=== PATIENT | female | born 1945 | race Caucasian/White ===

== ENCOUNTER → 2017-12-18 09:24 | Outpatient (CLI) | payer MEDICARE, OTHER, SELFPAY ==
[2017-12-18 11:32] LABS: Cholesterol 223 mg/dL (200); High Density Lipoprotein 58 mg/dL; Triglycerides 184 mg/dL; Very Low Density Lipoprotein 37 mg/dL (5-40)
== END ==
PROVIDERS: Family Provider Family Medicine; PCP Family Medicine; Referring Provider Family Medicine; Visit Provider Family Medicine
DX: I63.81 Other cerebral infarction due to occlusion or stenosis of small artery (principal); G45.4 Transient global amnesia; Z51.81 Encounter for therapeutic drug level monitoring
CPT/HCPCS: 36415; 80061

== ENCOUNTER → 2019-02-07 13:27 | Outpatient (CLI) | payer MEDICARE, OTHER, SELFPAY ==
[2019-02-07 16:12] LABS: Absolute Lymphocyte Count 1.36 X10^3/uL (0.83-4.51); Absolute Neutrophil Count 4.6 X10^3/uL (2.0-7.7); Basophil# 0.02 X10^3/uL; Basophil% 0.3 % (0-1); Eosinophil# 0.05 X10^3/uL; Eosinophils% 0.8 % (0-5); Hematocrit 41.5 % (37-47); Hemoglobin 13.6 g/dL (12.0-15.0); Lymphocyte # 1.36 X10^3/ul (4.0); Lymphocyte % 21.1 % (19-41); Mean Corp Hgb Conc 32.8 g/dL (32-36); Mean Corpuscular Hgb 30.2 pg (27.0-32.0); Mean Platelet Vol. 11.1 fl (6.2-12.0); Monocyte# 0.37 X10^3/uL; Monocyte% 5.7 % (0-10); NRBC Flagged by Analyzer 0 % (0-5); Neutrophil # 4.63 X10^3/uL (2.7-7.7); Neutrophil % 71.9 % (47-70); Platelet Count 239 K/mm3 (150-450); RBC Distribution Width CV 13.2 % (11.6-14.6); RBC Distribution Width SD 44.7 fl (35.1-43.9); Red Blood Count 4.51 M/mm3 (4.2-5.4); White Blood Count 6.4 K/mm3 (4.4-11.0)
[2019-02-07 16:45] LABS: D-Dimer Quantitative (DVT/PE) 0.44 FEU/ug/m (0.27-0.49)
[2019-02-07 16:58] LABS: BNP,B-Type NATRIURETIC PEPTIDE 29.8 pg/mL (0-100)
[2019-02-07 16:59] LABS: Hemoglobin A1c 5.7 % (4.2-6.3)
[2019-02-07 17:28] LABS: AST(SGOT) 18 U/L (15-37); Alanine Aminotransfer ALT/SGPT 29 U/L (13-56); Albumin, Serum 3.6 g/dL (3.2-5.0); Alkaline Phosphatase 56 U/L (45-117); Anion Gap 4 (5-15); BUN 12 mg/dL (7-18); BUN/Creat Ratio 16.9 RATIO (10-20); Calcium,Total 9.3 mg/dL (8.5-10.1); Chloride 104 mmol/L (98-107); Creatinine, Serum 0.71 mg/dL (0.55-1.02); EST Glomerular Filtration Rate 86 mL/min (>60); Est Glom Filt Rate - Afr Amer 104 mL/min (>60); Globulin 3.6 g/dL (2.2-4.2); Glucose 111 mg/dL (74-106); Potassium 3.4 mmol/L (3.5-5.1); Protein, Total 7.2 g/dL (6.4-8.2); Sodium Level 139 mmol/L (136-145)
== END ==
PROVIDERS: Family Provider Family Medicine; PCP Family Medicine; Referring Provider Family Medicine; Visit Provider Family Medicine
DX: R60.0 Localized edema (principal); R06.00 Dyspnea, unspecified; R73.9 Hyperglycemia, unspecified
CPT/HCPCS: 36415; 80053; 83036; 83880; 84443; 85025; 85379

== ENCOUNTER → 2019-02-21 10:45 | Outpatient (CLI) | payer MEDICARE, OTHER, SELFPAY ==
--- NOTE | 2019-02-21 10:50 | VDLE_ITS ---
Reason For Study: EDEMA RIGHT LEFT CFV is compressible, spontaneous, phasic, CFV is compressible, spontaneous, phasic, competent and demonstrates normal competent, and demonstrates normal augmentation. augmentation. FV is compressible, spontaneous, phasic, FV is compressible, spontaneous, phasic, competent and demonstrates normal competent and demonstrates normal augmentation. augmentation. POP V is compressible, spontaneous, phasic, POP V is compressible, spontaneous, phasic, competent and demonstrates normal competent and demonstrates normal augmentation. augmentation. T/P Trunk is compressible. T/P Trunk is compressible. PTV is compressible. PTV is compressible. RT PerV is compressible. LT PerV is compressible. SFJ is INCOMPETENT and measures .5 x .6 cm. SFJ is competent and measures .4 x .5 cm. GSV at knee measures .2 x .2 cm. GSV at knee measures .2 x .2 cm. GSV above knee is competent. GSV above knee is competent. GSV below knee is INCOMPETENT for greater GSV below knee is INCOMPETENT for greater than 0.5 seconds. than 0.5 seconds. SSV at junction is competent and measures .2 SSV at junction is competent and measures .24 x .254 cm. x .24 cm. Procedure Exam performed in department. Interpretation Summary Deep veins of the lower extremities are bilaterally patent and compressible segmentally. There is no evidence of deep vein thrombosis on either side. Valvular competence appears intact within the proximal deep venous systems bilaterally. The great saphenous veins appear bilaterally patent and compressible segmentally. The right sapheno-femoral junction is incompetent . The left sapheno- femoral junction is competent . The right great saphenous vein appears competent above the knee. The right great saphenous vein appears incompetent below the knee. The left great saphenous vein appears competent above the knee. The left great saphenous vein appears incompetent below the knee. Small saphenous veins are patent and competent bilaterally. Ordering Physician: Ruben Vickers Referring Physician: Ruben Vickers Performed By: Brenda Sutherland, REGAN, RVT
== END ==
PROVIDERS: Family Provider Family Medicine; PCP Family Medicine; Referring Provider Family Medicine; Visit Provider Family Medicine
DX: R60.0 Localized edema (principal); I83.893 Varicose veins of bilateral lower extremities with other complications
CPT/HCPCS: 93970

== ENCOUNTER → 2020-05-16 12:26 | Outpatient (CLI) | payer MEDICARE, OTHER, SELFPAY ==
--- NOTE | 2020-05-16 12:32 | VDLE_ITS ---
Reason For Study: Progressive venous insufficiency RIGHT LEFT CFV is compressible, spontaneous, phasic, CFV is compressible, spontaneous, phasic, competent and demonstrates normal competent, and demonstrates normal augmentation. augmentation. FV is compressible, spontaneous, phasic, FV is compressible, spontaneous, phasic, competent and demonstrates normal competent and demonstrates normal augmentation. augmentation. POP V is compressible, spontaneous, phasic, POP V is compressible, spontaneous, phasic, competent and demonstrates normal competent and demonstrates normal augmentation. augmentation. T/P Trunk is compressible. T/P Trunk is compressible. PTV is compressible. PTV is compressible. RT PerV is compressible. LT PerV is compressible. SFJ is competent and measures 0.49 x 0.51 cm. SFJ is competent and measures 0.57 x 0.59 cm. GSV proximal thigh measures 0.39 x 0.38 cm. GSV proximal thigh measures 0.32 x 0.31 cm. GSV at knee measures 0.16 x 0.16 cm. GSV above knee is competent. GSV INCOMPETENT throughout for greater than GSV at knee measures 0.21 x 0.19 cm. 0.5 seconds. GSV below knee is INCOMPETENT for greater ASV mid thigh is INCOMPETENT for greater than than 0.5 seconds. 0.5 seconds and measures 0.21 x 0.19 cm. ASV mid thigh is INCOMPETENT for greater than SSV proximal calf is competent and measures 0.5 seconds and measures 0.35 x 0.35 cm. 0.16 x 0.18 cm. SSV proximal calf is competent and measures Procedure 0.13 x 0.16 cm. This is a venous duplex using B-mode, color flow and spectral Doppler. Exam performed in department. VL/Venous Duplex US - Juan Extrem Interpretation Summary Deep veins of the lower extremities are bilaterally patent and compressible seg mentally. There is no evidence of deep vein thrombosis on either side. Valvular competence appears in tact within the proximal deep venous systems bilaterally. The great saphenous veins appear bila terally patent and compressible segmentally. Sapheno-femoral junctions are bilaterally competent . The right great saphenous vein appears segmentally incompetent. The left great saphenous vein a ppears competent above the knee. The left great saphenous vein appears incompetent below the kne e. Small saphenous veins are patent and competent bilaterally. The right accessory saphenous vein in the mid-thigh is incompetent. The left accessory saphenous vein in the mid-thigh is incompetent. Ordering Physician: Ruben Vickers Referring Physician: Ruben Vickers Performed By: Shira Irizarry RVT
--- NOTE | 2020-05-16 12:34 | ECHOD_ITS ---
Reason For Study: SOB, Edema Procedure This was a 2D Doppler, Color Flow transthoracic echocardiogram. The exam was of adequate technical quality. Exam performed in department. Left Ventricle Normal LV size. Left ventricular systolic function is normal. The estimated ejection fraction is 60 %. Diastolic function is indeterminate. No regional wall motion abnormalities noted. Right Ventricle Normal RV size. Normal systolic function. Atria The left atrium is mildly enlarged. Normal right atrium. No doppler evidence for ASD. Mitral Valve There is no mitral annular calcification. Normal mitral valve. Mild (1+) mitral valve insufficiency. Tricuspid Valve Normal tricuspid valve. Trivial tricuspid valve insufficiency. Right ventricular systolic pressure estimated to be 23 mmHg. Aortic Valve Trisinus/trileaflet aortic valve. Normal aortic valve. Pulmonic Valve The pulmonic valve is not well visualized. Trivial pulmonic valve insufficiency. Great Vessels Normal sized aortic root. Pericardium/Pleural No pericardial effusion. MMode/2D Measurements & Calculations LVIDd: 4.0 cm IVSd: 1.2 cm Ao root diam: 2.8 cm LVIDs: 2.3 cm LVPWd: 1.2 cm RVDd: 3.3 cm FS: 42.7 % LAV(MOD-bp): 60.5 ml LVAd ap4: 25.2 cm2 SV(MOD-sp4): 43.4 ml LAV(MOD-bp) Indexed: 33.9 ml/m2 EDV(MOD-sp4): 69.3 ml LAV(MOD-sp2): 52.7 ml EDV(sp4-el): 70.8 ml LAV(MOD-sp4): 67.6 ml LVAs ap4: 14.1 cm2 ESV(MOD-sp4): 25.9 ml ESV(sp4-el): 25.8 ml EF(MOD-sp4): 62.7 % EF(sp4-el): 63.6 % SV(sp4-el): 45.0 ml LA A4 area: 21.3 cm2 LA dimension(2D): 4.2 cm RA A4 area: 11.9 cm2 Doppler Measurements & Calculations MV E max rich: 79.3 cm/sec Lat Peak E' Rich: 8.8 cm/sec Med Peak E' Rich: 5.0 cm/sec MV A max rich: 85.8 cm/sec E/E' lat: 9.0 E/E' med: 15.9 MV E/A: 0.93 Ao V2 max: 137.7 cm/sec LV V1 max: 106.9 cm/sec PA V2 max: 109.6 cm/sec Ao max P.6 mmHg LV V1 max P.6 mmHg TR max rich: 225.6 cm/sec TR max P.4 mmHg ECHO/Echo Complete Interpretation Summary Left ventricular systolic function is normal. The estimated ejection fraction is 60 %. The left atrium is mildly enlarged. Mild (1+) mitral valve insufficiency. Trivial tricuspid valve insufficiency. Trivial pulmonic valve insufficiency. Right ventricular systolic pressure estimated to be 23 mmHg. Diastolic function is indeterminate. Ordering Physician: Rancho^Ruben^^^ Referring Physician: Ruben Vickers Performed By: Yelitza Stiles, REGAN
== END ==
PROVIDERS: PCP Family Medicine; Referring Provider Family Medicine; Visit Provider Family Medicine
DX: I87.2 Venous insufficiency (chronic) (peripheral) (principal); R06.00 Dyspnea, unspecified; R60.0 Localized edema
CPT/HCPCS: 93306; 93970

== ENCOUNTER 2020-11-09 18:02 | Emergency (ER) | payer MEDICARE, OTHER, SELFPAY ==
[2020-11-09 18:04] VITALS: BP 148/77; PULSE 77; RESP 15; TEMP 36.5; O2SAT 97; BMI 38.2
--- NOTE | 2020-11-09 19:15 | EX.ED.DYSGE1 ---
HPI History of Present Illness Chief Complaint: Cough Detail of Chief Complaint: Positive Covid test with respiratory and GI symptoms Informant: patient Onset/Context/Timing Onset: Days (Onset November 07) Current Severity: Mild Maximum Severity: Moderate Worsened by: Food and exertion Relieved by: Nothing Associated Symptoms Associated Symptoms: GI and respiratory symptoms Narrative Narrative: Is a 75-year-old unvaccinated person who presents with respiratory and GI symptoms consistent with Covid. She had a home Covid test. She was informed by the infusion nurse that she would not accept the results of positive home Covid test. She requested that she be tested at [facility]. She presents for testing. She does report congestion and rhinorrhea. She does report cough and slight shortness of breath. The cough is nonproductive. She does report nausea with diarrhea. She does report thirst and dry mouth. She denies orthostatic symptoms. She denies headache. She has mild arthralgias. Denies loss of taste or smell. Prior similar symptoms: No Recent Illness/Hospitalization: No PFSH PFSH Medical History (Updated 11/09/20 @ 20:[address] Jeremy Christianson MD) HTN (hypertension) Macular degeneration TIA (transient ischemic attack) Medical History no medical history no medical history Home Medications aspirin [Aspir-81] 81 mg PO DAILY 11/09/20 [History Last Taken Unknown] estradiol 1 mg DAILY 11/09/20 [History Last Taken Unknown] Allergy/AdvReac Type Severity Reaction Status Date / Time Sulfa (Sulfonamide Allergy Rash Verified 11/09/20 18:03 Antibiotics) cortisone AdvReac NEEDS Verified 11/09/20 18:04 FOLLOW-UP metronidazole [From Flagyl] AdvReac Swelling Verified 11/09/20 18:04 Social History (Updated 11/09/20 @ 19:[address] Jeremy Christianson MD) household members: none Smoking Status: Never smoker alcohol intake: never substance use type: does not use ROS ROS ED Constitutional Constitutional ED: Denies chills, fever(s), subjective or sweats Eyes Eyes: Denies blurry vision or change in vision ENT ENT ED: Reports rhinorrhea and sore throat; Denies ear pain Cardiovascular Cardiovascular: Denies chest pain, orthopnea, palpitations, paroxysmal nocturnal dyspnea or racing heartbeat Respiratory/Chest Respiratory/Chest: Reports cough and dyspnea; Denies dyspnea on exertion, orthopnea, paroxysmal nocturnal dyspnea or sputum Gastrointestinal Gastrointestinal: Reports diarrhea and nausea; Denies abdominal pain, constipation, melena or vomiting Genitourinary Genitourinary ED: Denies dysuria, hematuria or urinary frequency Musculoskeletal Musculoskeletal: Denies arthralgias, back pain or myalgias Integumentary Denies rash Neurologic Neurologic: Reports weakness; Denies headache(s) or paresthesias Allergic/Immunologic Allergic/Immunologic ED: Denies urticaria EXAM Physical Exam Const Vital Signs: 11/09/20 18:04 11/09/20 19:38 Temperature 97.7 F L Temperature Source Temporal Pulse Rate 77 Respiratory Rate 15 Respiratory Effort Normal Non-Labored Respiratory Depth Normal Respiratory Pattern Normal Blood Pressure 148/77 H Blood Pressure Mean 100 Pulse Ox 97 Oxygen Delivery Method Room Air Room Air Positive well nourished, well developed and obese General Appearance ED: well developed and NAD Nutritional Appearance: obese HEENT HEENT Narrative: Head is atraumatic normocephalic. Ears normal. Nares patent. Mucosa is moist. Eyes PERRL and EOMs intact bilaterally General Eye ED: Negative for pale conjunctiva or scleral icterus Neck no lymphadenopathy, supple and no JVD Resp normal respiratory effort and clear to auscultation bilaterally Cardio regular rate, regular rhythm, S1 normal heart sound, S2 normal heart sound and no murmurs GI normal to inspection, nondistended, normoactive bowel sounds and non-tender Palpation: soft Back/Spine no CVA tenderness Cervical Spine: Negative for cervical spine tenderness Thoracic Spine / Upper Back: Negative for thoracic spinal tenderness Extremity normal to inspection General Extremety ED: Negative for edema or tenderness General Extremity: Negative for edema Neuro CN's II-XII intact bilaterally and no sensory deficits noted Sensorium / Orientation: alert Motor Exam: strength 5/5 throughout Psych mental status grossly normal Skin no rashes or lesions noted and no wounds MDM MDM MDM Narrative Medical decision making narrative: Patient presents with symptoms consistent with Covid. She had a home Covid test. She states the nurse at the infusion center for the monoclonal antibody therapy would not accept the home test even that was positive. She states I need a positive test from [facility]. A rapid test was ordered. There is problems with regards to transportation for infusion therapy. medical and health services manager was consulted. Lab Data Attestation: I reviewed the patient's lab results. Lab results narrative: Covid test is positive. Discharge Plan Triage Chief Complaint: Cough ED Provider: Jeremy Christianson Dx/Rx/DC Orders Clinical Impression: COVID-19 virus infection Prescriptions: No Action aspirin [Aspir-81] 81 mg Tablet,Delayed Release (Dr/Ec) 81 mg PO DAILY RF: 0 estradiol 1 mg tablet 1 mg DAILY RF: 0 Other Ambulatory Orders: COVID Outpatient Monoclonal Antibody Referral (Routine) Timeframe: 1 Day Facility: [facility] - Location: [facility] Ordered By: Dr. Jeremy Christianson Primary Care Provider: Ruben Vickers Referrals: Ruben Vickers DO [Primary Care Provider] - Disposition Disposition: Home, Self Care
--- NOTE | 2020-11-09 19:20 | CM.ED ---
SOCIAL WORK Referral Source: Dr. Christianson Reason for Consult: Resources-issues with transportation Informed by Dr. Christianson, patient concerned will not have transport for infusion therapy as daughter will be heading to [place] over the weekend. Call to patient's daughter to discuss needs. Daughter states will find transportation for her mother to get to infusion therapy. Patient was here to obtain positive COVID-19 test result as they would not accept a home test. Dr. Christianson updated. Plan: Home with plan for infusion therapy Joce Pedraza, [employer], HEATING AND VENTILATING DRAFTER
[2020-11-09 19:38] VITALS: O2SAT 96
[2020-11-09 20:40] VITALS: PULSE 79; RESP 20; O2SAT 97
--- NOTE | 2020-11-09 20:43 | ED.RN ---
THIS NURSE REVIEWED D/C INSTRUCTIONS WITH PT AND DAUGHTER. BOTH VERBALIZED UNDERSTANDING OF INSTRUCTIONS. PT DENIES FURTHER NEEDS OR QUESTIONS AT THIS TIME. PT AMBULATES FROM ON OWN WITHOUT ASSISTANCE FROM STAFF
== END 2020-11-09 20:45 | disposition home or self-care (01) ==
PROVIDERS: Emergency Provider Emergency Medicine; PCP Family Medicine
DX: U07.1 COVID-19 (principal); E66.9 Obesity, unspecified; Z79.82 Long term (current) use of aspirin; Z79.899 Other long term (current) drug therapy
CPT/HCPCS: 87426; 99282

== ENCOUNTER 2020-11-10 14:25 | Emergency (ER) | payer MEDICARE, OTHER, SELFPAY ==
[2020-11-10 14:26] VITALS: BP 136/59; PULSE 63; RESP 18; TEMP 36.1; O2SAT 96; BMI 38.8
[2020-11-10] MEDS: Ondansetron 4 MG/2 ML Vial IV (14:51)
[2020-11-10 15:04] LABS: Absolute Lymphocyte Count 0.77 X10^3/uL (0.83-4.51); Absolute Neutrophil Count 3.2 X10^3/uL (2.0-7.7); Basophil# 0.01 X10^3/uL; Basophil% 0.2 % (0-1); Hematocrit 36.9 % (37-47); Hemoglobin 12.4 g/dL (12.0-15.0); Lymphocyte # 0.77 X10^3/ul (0.83-4.51); Lymphocyte % 18.3 % (19-41); Mean Corp Hgb Conc 33.6 g/dL (32-36); Mean Corpuscular Hgb 30.4 pg (27.0-32.0); Mean Corpuscular Volume 90.4 fL (81-99); Mean Platelet Vol. 10.3 fl (6.2-12.0); Monocyte# 0.26 X10^3/uL; Monocyte% 6.2 % (0-10); NRBC Flagged by Analyzer 0 % (0-5); Neutrophil # 3.16 X10^3/uL (2.7-7.7); Neutrophil % 75.3 % (47-70); Platelet Count 163 K/mm3 (150-450); RBC Distribution Width CV 13.9 % (11.6-14.6); RBC Distribution Width SD 46.7 fl (35.1-43.9); Red Blood Count 4.08 M/mm3 (4.2-5.4); White Blood Count 4.2 K/mm3 (4.4-11.0)
[2020-11-10 15:19] LABS: ALB/GLOB Ratio 0.8 RATIO (0.9-2.4); AST(SGOT) 17 U/L (15-37); Alanine Aminotransfer ALT/SGPT 27 U/L (13-56); Albumin, Serum 2.9 g/dL (3.2-5.0); Alkaline Phosphatase 64 U/L (45-117); Anion Gap 7 (5-15); BUN 12 mg/dL (7-18); BUN/Creat Ratio 23.5 RATIO (10-20); Calcium,Total 8.1 mg/dL (8.5-10.1); Chloride 103 mmol/L (98-107); Creatinine, Serum 0.51 mg/dL (0.55-1.02); EST Glomerular Filtration Rate 125 mL/min (>60); Est Glom Filt Rate - Afr Amer 152 mL/min (>60); Estimated Creatinine Clearance 64.39 ml/min; Globulin 3.5 g/dL (2.2-4.2); Glucose 133 mg/dL (74-106); Potassium 3.3 mmol/L (3.5-5.1); Protein, Total 6.4 g/dL (6.4-8.2); Sodium Level 139 mmol/L (136-145)
--- NOTE | 2020-11-10 15:24 | EX.ED.DYSGE1 ---
HPI History of Present Illness Chief Complaint: General Illness Informant: patient Narrative Narrative: Patient started about 4 to 5 days ago with sore throat nasal congestion and a slight nonproductive cough. She is not actually short of breath. She has had slight headache and myalgias. She took a home Covid test that was positive. She tried to get monoclonal antibody therapy but needed an official test. She came here yesterday and got that. She states she really was not having nausea and vomiting then. She woke up at about 3 AM this morning. She drank the left over 7 up from going to [employer] earlier in the night. Shortly after that she started vomiting. She gets some dry heaves. Mild soft stools. No abdominal pain. [facility] Medical History HTN (hypertension) Macular degeneration TIA (transient ischemic attack) Home Medications aspirin [Aspir-81] 81 mg PO DAILY 11/09/20 [History Last Taken Unknown] estradiol 1 mg DAILY 11/09/20 [History Last Taken Unknown] ondansetron 4 mg PO Q8H PRN #10 tab 11/10/20 [Rx Last Taken Unknown] promethazine 25 mg PO TID PRN #14 tab 11/10/20 [Rx Last Taken Unknown] Allergy/AdvReac Type Severity Reaction Status Date / Time Sulfa (Sulfonamide Allergy Rash Verified 11/10/20 14:29 Antibiotics) cortisone AdvReac NEEDS Verified 11/10/20 14:29 FOLLOW-UP hydromorphone [From Dilaudid] AdvReac Other Verified 11/10/20 14:29 metronidazole [From Flagyl] AdvReac Swelling Verified 11/10/20 14:29 Social History household members: none Smoking Status: Never smoker alcohol intake: never substance use type: does not use ROS ROS ED Constitutional Constitutional ED: Reports chills, fever(s) and subjective; Denies weight loss Eyes Eyes: Denies blurry vision or change in vision ENT ENT ED: Reports rhinorrhea, sore throat and other; Denies ear pain Cardiovascular Cardiovascular: Denies chest pain or palpitations Respiratory/Chest Respiratory/Chest: Reports cough and dyspnea Gastrointestinal Gastrointestinal: Reports nausea, vomiting and other Details: Patient stools are slightly soft but no diarrhea. ; Denies abdominal pain, constipation or melena Genitourinary Genitourinary ED: Denies dysuria or hematuria Musculoskeletal Musculoskeletal: Reports myalgias; Denies arthralgias, back pain or neck pain Integumentary Denies abscess or rash Neurologic Neurologic: Reports headache(s) Psychiatric Psychiatric: Denies anxiety or depression Endocrine Endocrinology: Denies polydipsia or polyuria Allergic/Immunologic Allergic/Immunologic ED: Reports other; Denies mouth swelling or tongue swelling EXAM Physical Exam Const Vital Signs: 11/10/20 14:26 11/10/20 15:00 11/10/20 16:39 Temperature 97.0 F L Temperature Source Temporal Pulse Rate 63 63 Respiratory Rate 18 14 Respiratory Effort Normal Non-Labored Respiratory Pattern Normal Blood Pressure 136/59 H 142/66 H Blood Pressure Mean 84 91 Pulse Ox 96 97 Oxygen Delivery Method Room Air Room Air Positive well nourished and well developed General Appearance ED: well developed and NAD HEENT Reports moist mucous membranes Negative for trauma or tenderness Eyes PERRL General Eye ED: Negative for pale conjunctiva or scleral icterus Neck no lymphadenopathy and no JVD Chest Wall inspection of chest normal Resp normal respiratory effort and clear to auscultation bilaterally Auscultation: Negative for rales, rhonchi or wheezes Cardio regular rate and regular rhythm GI normal to inspection, nondistended, normoactive bowel sounds, non-tender and non-distended Palpation: soft Back/Spine no CVA tenderness Extremity General Extremety ED: Negative for edema or tenderness General Extremity: Negative for edema Neuro Sensorium / Orientation: alert Psych mental status grossly normal Mood & Affect: Negative for depressed or tearful Skin no rashes or lesions noted and skin turgor normal MDM MDM MDM Narrative Medical decision making narrative: Patient's blood work showed mildly low white count which would be expected. Electrolytes show minimal drop in potassium that should self correct. Mild elevation of BUN to creatinine ratio. She is given some fluids gently here. She did feel better with meds. We gave her some fluids. She drank a Sprite. She did well and is kept it down for over an hour. We will get her home with both Phenergan and Zofran so she has some options. She is already set up with monoclonal therapy. Lab Data Attestation: I reviewed the patient's lab results. Labs: Laboratory Results - last 24 hr 11/10/20 11/10/20 14:55 14:55 WBC 4.2 L RBC 4.08 L Hgb 12.4 Hct 36.9 L MCV 90.4 MCH 30.4 MCHC 33.6 RDW Std Deviation 46.7 H RDW Coeff of Marika 13.9 Plt Count 163 MPV 10.3 Immature Gran % (Auto) 0.000 Neut % (Auto) 75.3 H Lymph % (Auto) 18.3 L [place] % (Auto) 6.2 Eos % (Auto) 0.0 Baso % (Auto) 0.2 Absolute Neuts (auto) 3.2 Absolute Lymphs (auto) 0.77 L Nucleated RBC % 0 Sodium 139 Potassium 3.3 L Chloride 103 Carbon Dioxide 29.0 Anion Gap 7 BUN 12 Creatinine 0.51 L Estim Creat Clear Calc 64.39 Est GFR (MDRD) Af Amer 152 Est GFR (MDRD) Non-Af 125 BUN/Creatinine Ratio 23.5 H Glucose 133 H Calcium 8.1 L Total Bilirubin 0.20 AST 17 ALT 27 Alkaline Phosphatase 64 Total Protein 6.4 Albumin 2.9 L Globulin 3.5 Albumin/Globulin Ratio 0.8 L Discharge Plan Triage Chief Complaint: General Illness ED Provider: Jono Mclaughlin Dx/Rx/DC Orders Clinical Impression: COVID-19 virus infection, Nausea & vomiting Prescriptions: New ondansetron 4 mg tablet,disintegrating 4 mg PO Q8H PRN (Reason: nausea and vomiting) Qty: 10 RF: 0 promethazine 25 mg tablet 25 mg PO TID PRN (Reason: nausea and vomiting) Qty: 14 RF: 0 No Action aspirin [Aspir-81] 81 mg Tablet,Delayed Release (Dr/Ec) 81 mg PO DAILY RF: 0 estradiol 1 mg tablet 1 mg DAILY RF: 0 Primary Care Provider: Ruben Vickers Referrals: Ruben Vickers DO [Primary Care Provider] - 3-5 Days if not improving Disposition Disposition: Home, Self Care
[2020-11-10 16:39] VITALS: BP 142/66; PULSE 63; RESP 14; O2SAT 97
[2020-11-10 18:26] VITALS: BP 139/74; PULSE 62; RESP 14; O2SAT 99
== END 2020-11-10 19:30 | disposition home or self-care (01) ==
PROVIDERS: Emergency Provider Emergency Medicine; PCP Family Medicine
DX: U07.1 COVID-19 (principal); R11.2 Nausea with vomiting, unspecified
CPT/HCPCS: 80053; 85025; 96374; 99285; A4216; J2405

== ENCOUNTER 2020-11-17 13:52 | Emergency (ER) | payer MEDICARE, OTHER, SELFPAY ==
[2020-11-17] VITALS (7 sets, daily range): BP systolic 130–165; BP diastolic 74–91; PULSE 71–89; RESP 18–20; TEMP 36.7–37.3; O2SAT 92–96; BMI 33.7
--- NOTE | 2020-11-17 15:06 | EKG12_ITS ---
Test Reason : Blood Pressure : / mmHG Vent. Rate : 076 BPM Atrial Rate : 076 BPM P-R Int : 116 ms QRS Dur : 092 ms QT Int : 394 ms P-R-T Axes : -01 010 050 degrees QTc Int : 443 ms Normal sinus rhythm Nonspecific ST abnormality Abnormal ECG Confirmed by ESTELITA LE, DOMINGUEZ ([id number]), continuity editor LARRY GLASS ([id number]) on 11/20/2020 9:35:13 AM Referred By: RACHEL Confirmed By:DOMINGUEZ CAPONE MD
--- NOTE | 2020-11-17 15:09 | EDS_ITS ---
HPI History of Present Illness Chief Complaint: Shortness of Breath Informant: patient Narrative Narrative: Patient comes in with dyspnea and low oxygen levels at home with Covid. She started having symptoms on 07 November. She had a home Covid test that was positive. She tried to get monoclonal antibody therapy. However they needed a different positive test. She had one done here. However, due to multiple phone calls back and forth there was never a connection made so she never got monoclonal treatment. She did get treated somewhere early in the disease with doxycycline. She states every time she took this she had nausea and vomiting. That has been stopped. She has also been on hydroxychloroquine for several days. Her appetite is low but she no longer has nausea vomiting. She has no diarrhea. She has some mild myalgias. No chest pain. Patient woke up at about 2 or 3 this morning with saturations about 82%. She states during the day she has got saturations at 84 and 86% several times. She has also gotten saturations at about 93%. She does have symptoms that somewhat correlate with this to. [facility] Medical History HTN (hypertension) Macular degeneration TIA (transient ischemic attack) Home Medications aspirin [Aspir-81] 81 mg PO DAILY 11/09/20 [History Last Taken Unknown] estradiol 1 mg DAILY 11/09/20 [History Last Taken Unknown] ondansetron 4 mg PO Q8H PRN #10 tab 11/10/20 [Rx Last Taken Unknown] promethazine 25 mg PO TID PRN #14 tab 11/10/20 [Rx Last Taken Unknown] doxycycline hyclate 100 mg PO/SL BID 11/17/20 [History Last Taken Unknown] hydroxychloroquine 200 mg PO/SL BID 11/17/20 [History Last Taken Unknown] Allergy/AdvReac Type Severity Reaction Status Date / Time Sulfa (Sulfonamide Allergy Rash Verified 11/17/20 14:36 Antibiotics) cortisone AdvReac NEEDS Verified 11/17/20 14:36 FOLLOW-UP hydromorphone [From Dilaudid] AdvReac Other Verified 11/17/20 14:36 metronidazole [From Flagyl] AdvReac Swelling Verified 11/17/20 14:36 Social History household members: none Smoking Status: Never smoker alcohol intake: never substance use type: does not use ROS ROS ED Constitutional Constitutional ED: Reports chills and fever(s) Eyes Eyes: Denies blurry vision or change in vision ENT ENT ED: Reports rhinorrhea; Denies sore throat Cardiovascular Cardiovascular: Denies chest pain or palpitations Respiratory/Chest Respiratory/Chest: Reports cough and dyspnea; Denies sputum Gastrointestinal Gastrointestinal: Denies diarrhea, nausea or vomiting Genitourinary Genitourinary ED: Denies dysuria Musculoskeletal Musculoskeletal: Reports myalgias Integumentary Denies rash Neurologic Neurologic: Denies headache(s) or weakness Psychiatric Psychiatric: Denies anxiety or depression Endocrine Endocrinology: Denies polydipsia or polyuria Hematologic/Lymphatic Hematologic/Lymphatic: Denies easy bleeding or easy bruising EXAM Physical Exam Const Vital Signs: 11/17/20 13:52 11/17/20 14:47 11/17/20 15:38 Temperature 98.2 F Temperature Source Temporal Pulse Rate 89 Respiratory Rate 20 H Respiratory Effort Normal Non-Labored Short of Breath Respiratory Depth Normal Respiratory Pattern Normal Blood Pressure 165/91 H Blood Pressure Mean 115 Pulse Ox 96 Pulse Ox [At REST on Room Air] 94 Oxygen Delivery Method Room Air Room Air 11/17/20 17:04 Temperature 98.1 F Temperature Source Oral Pulse Rate 81 Respiratory Rate 18 Respiratory Effort Respiratory Depth Respiratory Pattern Blood Pressure 130/78 H Blood Pressure Mean 95 Pulse Ox 95 Pulse Ox [At REST on Room Air] Oxygen Delivery Method Room Air Positive well nourished and well developed General Appearance ED: well developed and NAD HEENT Reports moist mucous membranes atraumatic Eyes General Eye ED: Negative for pale conjunctiva or scleral icterus Neck no meningeal signs and no JVD Resp normal respiratory effort Resp Narrative: Breathing looks comfortable at this time. She does have some mild bilateral basilar rhonchi. No wheezes or rales. Auscultation: rhonchi; Negative for rales or wheezes Cardio regular rate GI non-tender and non-distended Palpation: soft Back/Spine no CVA tenderness and normal to inspection Extremity normal to inspection Neuro oriented x3 Sensorium / Orientation: alert and oriented to person Psych mental status grossly normal Skin Lesions: no lesions Rashes: no rashes MDM MDM MDM Narrative Medical decision making narrative: Patient's blood work shows minimal elevation white count. Lactate is negative. Electrolytes show no marked abnormalities other than minimal decrease of potassium. Chest x-ray shows some subtle findings that are consistent with Covid. We have walked this patient several times. The lowest oxygen level we ever get is 94%. We cannot reproduce her low oxygen numbers at home. She looks good. She looks nontoxic. The nausea is gone. She is eating and drinking. I think she is still safe to get home. Lab Data Attestation: I reviewed the patient's lab results. Labs: Laboratory Results - last 24 hr 11/17/20 11/17/20 11/17/20 15:27 15:27 15:27 WBC 11.4 H RBC 4.64 Hgb 14.0 Hct 41.6 MCV 89.7 MCH 30.2 MCHC 33.7 RDW Std Deviation 44.7 H RDW Coeff of Marika 13.6 Plt Count 234 MPV 10.5 Immature Gran % (Auto) 2.000 H Neut % (Auto) 85.9 H Lymph % (Auto) 8.6 L [place] % (Auto) 3.2 Eos % (Auto) 0.0 Baso % (Auto) 0.3 Absolute Neuts (auto) 9.8 H Absolute Lymphs (auto) 0.98 Nucleated RBC % 0 Sodium 139 Potassium 3.3 L Chloride 103 Carbon Dioxide 29.0 Anion Gap 7 BUN 20 H Creatinine 0.72 Estim Creat Clear Calc 35.99 Est GFR (MDRD) Af Amer 101 Est GFR (MDRD) Non-Af 84 BUN/Creatinine Ratio 27.6 H Glucose 107 H Lactic Acid 1.4 Calcium 8.6 Total Bilirubin 0.40 AST 35 ALT 65 H Alkaline Phosphatase 86 Total Protein 6.7 Albumin 2.8 L Globulin 3.9 Albumin/Globulin Ratio 0.7 L Radiography Diagnostic Testing: Clinical Impression(s) from Imaging Studies Chest X-Ray 11/17/20 15:40 IMPRESSION: Mild peripheral opacities in the mid to lower lungs concerning for pneumonia. at 1559 Reported and signed by: Amy Callahan MD Electronically Signed: Amy Callahan MD at 15:58 EDT Tel , Service support , EKG Initial EKG: Comments: EKG done for dyspnea read by me shows normal sinus rhythm with a rate of 76. Mild baseline variation but no sign of infarct or ischemia. MS interval QRS duration and QTc normal. Discharge Plan Triage Chief Complaint: Shortness of Breath Other Complaint: Lower Extremity Injury ED Provider: Jono Mclaughlin Dx/Rx/DC Orders Clinical Impression: COVID-19 virus infection Instructions: Caring for Someone Who Has COVID-19 Prescriptions: No Action aspirin [Aspir-81] 81 mg Tablet,Delayed Release (Dr/Ec) 81 mg PO DAILY RF: 0 estradiol 1 mg tablet 1 mg DAILY RF: 0 ondansetron 4 mg tablet,disintegrating 4 mg PO Q8H PRN (Reason: nausea and vomiting) Qty: 10 RF: 0 promethazine 25 mg tablet 25 mg PO TID PRN (Reason: nausea and vomiting) Qty: 14 RF: 0 doxycycline hyclate 100 mg PO/SL BID RF: 0 hydroxychloroquine 200 mg PO/SL BID RF: 0 Primary Care Provider: Ruben Vickers Referrals: Ruben Vickers DO [Primary Care Provider] - 3-5 Days if not improving Disposition Disposition: Home, Self Care
--- NOTE | 2020-11-17 15:10 | NURSING ---
NO OLD EKGS
[2020-11-17 15:40] LABS: Absolute Lymphocyte Count 0.98 X10^3/uL (0.83-4.51); Absolute Neutrophil Count 9.8 X10^3/uL (2.0-7.7); Basophil# 0.04 X10^3/uL; Basophil% 0.3 % (0-1); Hematocrit 41.6 % (37-47); Lymphocyte # 0.98 X10^3/ul (0.83-4.51); Lymphocyte % 8.6 % (19-41); Mean Corp Hgb Conc 33.7 g/dL (32-36); Mean Corpuscular Hgb 30.2 pg (27.0-32.0); Mean Corpuscular Volume 89.7 fL (81-99); Mean Platelet Vol. 10.5 fl (6.2-12.0); Monocyte# 0.37 X10^3/uL; Monocyte% 3.2 % (0-10); NRBC Flagged by Analyzer 0 % (0-5); Neutrophil # 9.81 X10^3/uL (2.7-7.7); Neutrophil % 85.9 % (47-70); Platelet Count 234 K/mm3 (150-450); RBC Distribution Width CV 13.6 % (11.6-14.6); RBC Distribution Width SD 44.7 fl (35.1-43.9); Red Blood Count 4.64 M/mm3 (4.2-5.4); White Blood Count 11.4 K/mm3 (4.4-11.0)
--- NOTE | 2020-11-17 15:40 | RAD_ITS ---
HISTORY: cough. TECHNIQUE: XR Chest 1 View. # of images incl. paperwork: 1. COMPARISON: None. FINDINGS: CARDIOMEDIASTINAL STRUCTURES: Cardiac silhouette not enlarged. Mediastinal contour unremarkable with calcification of the aortic knob. LUNGS: Mild peripheral linear and patchy opacities in both lungs. PLEURA: No pleural effusion or pneumothorax. OSSEOUS STRUCTURES: Unremarkable. RAD/Chest 1 View (Portable) IMPRESSION: Mild peripheral opacities in the mid to lower lungs concerning for pneumonia. at 1559 Reported and signed by: Amy Callahan MD Electronically Signed: Amy Callahan MD at 15:58 EDT Tel , Service support ,
[2020-11-17 15:57] LABS: ALB/GLOB Ratio 0.7 RATIO (0.9-2.4); AST(SGOT) 35 U/L (15-37); Alanine Aminotransfer ALT/SGPT 65 U/L (13-56); Albumin, Serum 2.8 g/dL (3.2-5.0); Alkaline Phosphatase 86 U/L (45-117); Anion Gap 7 (5-15); BUN 20 mg/dL (7-18); BUN/Creat Ratio 27.6 RATIO (10-20); Calcium,Total 8.6 mg/dL (8.5-10.1); Chloride 103 mmol/L (98-107); Creatinine, Serum 0.72 mg/dL (0.55-1.02); EST Glomerular Filtration Rate 84 mL/min (>60); Est Glom Filt Rate - Afr Amer 101 mL/min (>60); Estimated Creatinine Clearance 35.99 ml/min; Globulin 3.9 g/dL (2.2-4.2); Glucose 107 mg/dL (74-106); Potassium 3.3 mmol/L (3.5-5.1); Protein, Total 6.7 g/dL (6.4-8.2); Sodium Level 139 mmol/L (136-145)
[2020-11-17 16:10] LABS: Lactic Acid 1.4 mmol/L (0.4-1.9)
== END 2020-11-17 18:55 | disposition home or self-care (01) ==
PROVIDERS: Emergency Provider Emergency Medicine; PCP Family Medicine
DX: U07.1 COVID-19 (principal); I10 Essential (primary) hypertension; Z79.82 Long term (current) use of aspirin; Z79.899 Other long term (current) drug therapy
CPT/HCPCS: 71045; 80053; 83605; 85025; 93005; 99284

== ENCOUNTER → 2023-07-09 | Outpatient (CLI) | payer MEDICARE, OTHER, SELFPAY ==
--- NOTE | 2023-07-09 10:00 | RAD_ITS ---
INDICATION: OSTEOARTHRITIS EXAMINATION/TECHNIQUE: X-RAY - RIGHT XR Foot Min 3 Views 3 VIEWS COMPARISON: No relevant prior comparison study available FINDINGS: SOFT TISSUES: No soft tissue swelling or gas. No radiopaque foreign body. BONES/JOINTS: No acute fracture or subluxation.. Normal alignment. Severe degenerative arthrosis of the second metatarsophalangeal joint could be due to previous injury. The remainder of the joint spaces are within normal limits. Small plantar calcaneal spur. No sclerotic or destructive changes observed. RAD/Foot min 3 Views IMPRESSION: Degenerative arthrosis of the second metatarsophalangeal joint could be due to previous injury. Electronically Signed: Brody Carter MD at 14:32 EDT ,
--- NOTE | 2023-07-09 10:02 | RAD_ITS ---
INDICATION: OSTEOARTHRITIS EXAMINATION/TECHNIQUE: X-RAY - LEFT XR Foot Min 3 Views 3 VIEWS COMPARISON: No relevant prior comparison study available FINDINGS: SOFT TISSUES: No soft tissue swelling or gas. No radiopaque foreign body. BONES/JOINTS: No acute fracture or subluxation.. Normal alignment. Severe degenerative arthrosis of the second metatarsophalangeal joint similar to the right foot. The remainder of the joint spaces are within normal limits. No erosive changes are seen. Tiny plantar calcaneal spur. No sclerotic or destructive changes observed. RAD/Foot min 3 Views IMPRESSION: Degenerative arthrosis of the second metatarsophalangeal joint. Electronically Signed: Brody Carter MD at 14:34 EDT ,
[2023-07-09 13:25] LABS: Glucose 105 mg/dL (74-106)
[2023-07-09 13:31] LABS: Hemoglobin A1c 5.5 % (3.8-5.6)
== END | disposition home or self-care (01) ==
LOC: MTLAB 09:52
PROVIDERS: PCP Family Medicine; Referring Provider Podiatrist; Visit Provider Podiatrist
DX: M19.079 Primary osteoarthritis, unspecified ankle and foot (principal); E11.9 Type 2 diabetes mellitus without complications
CPT/HCPCS: 36415; 73630; 82947; 83036

== ENCOUNTER → 2024-09-30 | Outpatient (CLI) | payer MEDICARE, OTHER, SELFPAY ==
[2024-09-30 10:32] LABS: Hematocrit 40.5 % (37-47); Hemoglobin 13.8 g/dL (12.0-15.0); Immature Granulocytes Count 0.010 X10^3/uL (0.0-0.0); Mean Corp Hgb Conc 34.1 g/dL (32-36); Mean Corpuscular Volume 91.6 fL (81-99); Mean Platelet Vol. 10.5 fl (6.2-12.0); NRBC Flagged by Analyzer 0 % (0-5); Platelet Count 231 K/mm3 (150-450); RBC Distribution Width CV 13.5 % (11.6-14.6); RBC Distribution Width SD 46.2 fl (35.1-43.9); Red Blood Count 4.42 M/mm3 (4.2-5.4); White Blood Count 5.2 K/mm3 (4.4-11.0)
[2024-09-30 11:23] LABS: AST(SGOT) 22 U/L (<=31); Alanine Aminotransfer ALT/SGPT 23 U/L (<=34); Albumin, Serum 3.9 g/dL (3.4-4.8); Alkaline Phosphatase 76 U/L (35-104); Anion Gap 11 (5-15); BUN 16 mg/dL (4-19); BUN/Creat Ratio 31.5 RATIO (10-20); Calcium,Total 9.2 mg/dL (7.6-11.0); Carbon Dioxide 25.4 mmol/L (21.0-32.0); Chloride 104 mmol/L (98-108); Globulin 2.7 g/dL (2.2-4.2); Glucose 98 mg/dL (70-99); Potassium 4.3 mmol/L (3.3-5.1); Pro- Brain NATRIURETIC PEPTIDE 144 pg/mL (<=1800)
== END | disposition home or self-care (01) ==
LOC: LAB 09:48
PROVIDERS: PCP Family Medicine; Referring Provider Family Medicine; Visit Provider Family Medicine
DX: R06.00 Dyspnea, unspecified (principal); R60.9 Edema, unspecified
CPT/HCPCS: 36415; 80053; 83880; 84443; 85025